=== PATIENT | female | born 1965 | race Caucasian/White ===

== ENCOUNTER 2021-08-05 19:37 | Emergency (ER) | payer SELFPAY ==
[~2021-08-05 19:37] MED LIST: Iopamidol 370 76% 100 ML VIAL ONE
[2021-08-05 20:10] LABS: Bilirubin Negative (Negative); Blood, Urine Negative (Negative); Clarity Clear (Clear); Glucose, Urine (Dipstick) Negative (Negative); Ketone, Urine Negative (Negative); Leukocyte Negative (Negative); Nitrite Negative (Negative); Protein, Urine (Dipstick) 30 mg/dL (Neg-Trace); Urobilinogen 0.2 mg/dL (Less than 2); pH, Urine 5.5 (5.0-9.0)
[2021-08-05 20:11] LABS: Mucous/LPF 3+ LPF (<2+); RBC/HPF 0-3 HPF (0-3); Specific Gravity, Urine 1.026 (1.002-1.036)
[2021-08-05 20:16] LABS: #Basophils 0.1 thou/uL (0.0-0.2); #Eosinphils 0.1 thou/uL (0.0-0.7); #Lymphocytes 1.2 thou/uL (1.20-3.40); #Monocytes 1.3 thou/uL (0.11-0.59); #Neutrophils 9.8 thou/uL (1.40-6.50); %Basophils 0.8 % (0.0-1.0); %Eosinophils 0.8 % (0.0-10.0); %Lymphocytes 9.4 % (21.0-51.0); %Monocytes 10.1 % (0.0-10.0); %Neutrophils 78.9 % (42.0-75.0); Hemoglobin 9.1 g/dL (12.0-16.0); Mean Corpuscular Hemoglobin 24.7 pg (27.0-31.0); Mean Corpuscular Volume 79.8 fL (78.0-98.0); Platelet Count 456 thou/uL (130-400); Platelet Morphology Comment Appears Adequate; RBC Distribution Width 14.3 % (11.5-14.5); RBC Morphology Normal; Red Blood Cell (RBC) Count 3.68 mill/uL (4.20-5.40); White Blood Cell (WBC) Count 12.5 thou/uL (4.8-10.8)
[2021-08-05] MEDS ORDERED: Morphine 4 MG/ML VIAL ONE ×2 (20:17→22:54)
[2021-08-05] MEDS ORDERED: Ondansetron PF 4 MG/2 ML Vial ONE ×2 (20:17→22:55)
[2021-08-05 20:20] LABS: ALT (SGPT) Less than 7 U/L (8-55); AST (SGOT) 9 U/L (5-34); Albumin 3.6 g/dL (3.5-5.0); Alkaline Phosphatase 108 U/L (40-110); Anion Gap 14 mmol/L (10-20); BUN (Urea Nitrogen) 8 mg/dL (9.8-20.1); Bilirubin, Total 0.3 mg/dL (0.2-1.2); Calc. Creatinine Clearance 0 mL/min (70-130); Calcium 8.8 mg/dL (7.8-10.44); Carbon Dioxide 25 mmol/L (22-29); Chloride 100 mmol/L (98-107); Globulin 4.7 g/dL (2.4-3.5); Glucose 148 mg/dL (70-105); Potassium 3.3 mmol/L (3.5-5.1); Protein, Total 8.3 g/dL (6.0-8.3); Sodium 136 mmol/L (136-145)
[2021-08-05] MEDS ORDERED: Sodium Chloride 0.9% 1,000 ML ONE (21:37)
[2021-08-05] MEDS ORDERED: Piperacillin/Tazobactam 4.5 GM VIAL ONE (21:37)
[2021-08-05] MEDS ORDERED: Sodium Chloride 0.9% 100 ML ONE (21:37)
[2021-08-05 22:54] LABS: SARS-CoV-2 NAA Rapid Test Not Detected (NotDetected)
== END 2021-08-05 23:38 | disposition short-term general hospital (02) ==
LOC: MADERS 19:37
DX: A41.9 Sepsis, unspecified organism (principal); K63.1 Perforation of intestine (nontraumatic); L02.211 Cutaneous abscess of abdominal wall; K63.0 Abscess of intestine; F17.200 Nicotine dependence, unspecified, uncomplicated
CPT/HCPCS: 74177; 80053; 81003; 81015; 83605; 83690; 85025; 87040; 96365; 96375; 96376; J2270; J2405; J2543; J3490; J7050; Q9967; U0002

== ENCOUNTER 2021-08-19 20:32 | Emergency (ER) | payer SELFPAY ==
[2021-08-19] MEDS ORDERED: Iopamidol 370 76% 100 ML VIAL IV ONE (20:33)
[2021-08-19] MEDS ORDERED: Sodium Chloride 0.9% 1,000 ML ONE (20:52)
[2021-08-19] MEDS ORDERED: Prochlorperazine 10 MG/2 ML VIAL ONE (20:52)
[2021-08-19] MEDS ORDERED: Morphine 4 MG/ML VIAL ONE (20:52)
[2021-08-19 21:22] LABS: ALT (SGPT) 7 U/L (8-55); AST (SGOT) 12 U/L (5-34); Albumin 3.2 g/dL (3.5-5.0); Alkaline Phosphatase 83 U/L (40-110); Anion Gap 14 mmol/L (10-20); BUN (Urea Nitrogen) 11 mg/dL (9.8-20.1); Bilirubin, Total 0.2 mg/dL (0.2-1.2); Calc. Creatinine Clearance 0 mL/min (70-130); Calcium 9.1 mg/dL (7.8-10.44); Carbon Dioxide 26 mmol/L (22-29); Chloride 100 mmol/L (98-107); Globulin 5.1 g/dL (2.4-3.5); Glucose 249 mg/dL (70-105); Lipase 23 U/L (8-78); Potassium 3.3 mmol/L (3.5-5.1); Protein, Total 8.3 g/dL (6.0-8.3); Sodium 137 mmol/L (136-145)
[2021-08-19] MEDS ORDERED: NS 0.9% w/ 40 MEQ KCL 1,000 ML IV ONE (21:36)
[2021-08-19 22:05] LABS: #Basophils 0.1 thou/uL (0.0-0.2); #Eosinphils 0.1 thou/uL (0.0-0.7); #Lymphocytes 1.5 thou/uL (1.20-3.40); #Monocytes 0.9 thou/uL (0.11-0.59); #Neutrophils 7.5 thou/uL (1.40-6.50); %Basophils 0.7 % (0.0-1.0); %Eosinophils 0.7 % (0.0-10.0); %Monocytes 8.8 % (0.0-10.0); %Neutrophils 74.8 % (42.0-75.0); Hemoglobin 9.7 g/dL (12.0-16.0); Hypochromia SLIGHT = 6-15 cells (100X) (0-5/hpf); MDiff Complete? YES; Mean Corpuscular HGB CONC 30.3 g/dL (32.0-36.0); Mean Corpuscular Hemoglobin 24.6 pg (27.0-31.0); Mean Corpuscular Volume 81.3 fL (78.0-98.0); Mean Platelet Volume 5.9 fL (7.4-10.4); Microcytosis SLIGHT = 6-15 cells (100X) (0-5/hpf); Platelet Count 542 thou/uL (130-400); Polychromasia SLIGHT = 2-3 cells (100X) (0-2/hpf); RBC Distribution Width 15.7 % (11.5-14.5); Red Blood Cell (RBC) Count 3.92 mill/uL (4.20-5.40)
[2021-08-19] MEDS ORDERED: Lidocaine 2% 20 ml MDV ONE (22:09)
[2021-08-19] MEDS ORDERED: Lidocaine Viscous Sol 2% 15 ml UD Cup ONE (22:23)
[2021-08-19 22:41] LABS: Bilirubin Negative (Negative); Blood, Urine Negative (Negative); Clarity Clear (Clear); Glucose, Urine (Dipstick) Negative (Negative); Ketone, Urine Negative (Negative); Leukocyte Negative (Negative); Nitrite Negative (Negative); Protein, Urine (Dipstick) Negative (Neg-Trace); Urobilinogen 0.2 mg/dL (Less than 2); pH, Urine 5.5 (5.0-9.0)
[2021-08-19 22:44] LABS: Specific Gravity, Urine Greater than 1.050 (1.002-1.036)
[2021-08-19] MEDS ORDERED: Ondansetron PF 4 MG/2 ML Vial ONE (22:48)
[2021-08-19] MEDS ORDERED: Lorazepam 2 MG/ML VIAL ONE (22:50)
== END 2021-08-19 23:29 | disposition short-term general hospital (02) ==
LOC: MADERS 20:32
DX: K56.609 Unspecified intestinal obstruction, unspecified as to partial versus complete obstruction (principal); R19.03 Right lower quadrant abdominal swelling, mass and lump; E87.6 Hypokalemia; R11.2 Nausea with vomiting, unspecified; F17.200 Nicotine dependence, unspecified, uncomplicated
CPT/HCPCS: 71045; 74177; 80053; 81003; 83605; 83690; 85025; 87040; 96365; 96366; 96375; J0780; J2060; J2270; J2405; J3480; J7050; Q9967

== ENCOUNTER 2021-10-02 17:33 | Emergency (ER) | payer SELFPAY | END 2021-10-02 18:10 | disposition home or self-care (01) | LOC: MADERS 17:33 | DX: Z43.3 Encounter for attention to colostomy (principal); G47.00 Insomnia, unspecified; F17.200 Nicotine dependence, unspecified, uncomplicated; Z79.899 Other long term (current) drug therapy | CPT/HCPCS: 99282 ==

== ENCOUNTER 2022-03-11 18:46 | Emergency (ER) | payer SELFPAY | END 2022-03-11 20:30 | disposition left against medical advice (07) | LOC: MADERS 18:46 | DX: Z53.21 Procedure and treatment not carried out due to patient leaving prior to being seen by health care provider (principal) ==